=== PATIENT | female | born 1970 | race Caucasian/White ===

== ENCOUNTER 2016-07-22 17:29 | Emergency (ER) | payer SELFPAY ==
[~2016-07-22 17:29] MED LIST: NORCO 5-325 TA1 EACH PO
[2016-07-22] MEDS ORDERED: NEOMYCIN-POLYMY10 M5 OT (19:19)
== END 2016-07-22 19:27 ==
LOC: EDMED 17:29
DX: T16.2XXA Foreign body in left ear, initial encounter (principal); L98.9 Disorder of the skin and subcutaneous tissue, unspecified; F17.200 Nicotine dependence, unspecified, uncomplicated